=== PATIENT | male | born 1995 | race Caucasian/White ===

== ENCOUNTER 2016-07-29 14:01 | Emergency (ER) | payer OTHER ==
[2016-07-29 15:33] LABS: HEMOGLOBIN 17.6 gm/dl (14.0-17.5); RED BLOOD COUNT 6.05 M/UL (4.20-5.50); WHITE BLOOD COUNT 7.8 K/UL (4.5-11.0)
[2016-07-29 16:09] LABS: BUN/CREATININE RATIO 13 (0-10)
== END 2016-07-29 18:00 | disposition home or self-care (01) ==
LOC: ER1 14:01
PROVIDERS: Emergency Medicine
DX: G40.409 Other generalized epilepsy and epileptic syndromes, not intractable, without status epilepticus (principal)
CPT/HCPCS: 36415; 70450; 71010; 80053; 80307; 81001; 82550; 82553; 83874; 84484; 85025; 93005; 96374; 99285; J1953; J2060; J7030

== ENCOUNTER 2016-08-03 21:39 | Inpatient (IN) | payer OTHER ==
[~2016-08-03] VITALS: Ht 188 cm; Wt 83.9 kg
[2016-08-03 22:42] LABS: RED BLOOD COUNT 5.38 M/UL (4.20-5.50); WHITE BLOOD COUNT 14.7 K/UL (4.5-11.0)
[2016-08-03 22:44] LABS: HEMOGLOBIN 15.4 gm/dl (14.0-17.5)
[2016-08-03 22:58] LABS: BUN/CREATININE RATIO 11 (0-10)
[2016-08-04] MEDS ORDERED: KEPPRA500 MG PO (01:53)
[2016-08-04 06:27] LABS: RED BLOOD COUNT 4.66 M/UL (4.20-5.50); WHITE BLOOD COUNT 7.9 K/UL (4.5-11.0)
[2016-08-04 06:28] LABS: HEMOGLOBIN 13.1 gm/dl (14.0-17.5)
[2016-08-04 06:40] LABS: BUN/CREATININE RATIO 13 (0-10)
[2016-08-04] MEDS ORDERED: KEPPRA750 MG PO (10:38)
[2016-08-04] MEDS ORDERED: HABITROL 14 MG P1 EA TD (10:40)
== END 2016-08-04 10:50 | disposition home or self-care (01) | DRG 100 ==
LOC: ER1 21:39 → ZEROF 23:58 → CCU 23:58
PROVIDERS: Emergency Medicine; ADMIT Internal Medicine
PROC: 5A1935Z Respiratory Ventilation, Less than 24 Consecutive Hours (ICD-10-PCS; principal; 2016-08-03)
PROC: 0BH17EZ Insertion of Endotracheal Airway into Trachea, Via Natural or Artificial Opening (ICD-10-PCS; 2016-08-03)
DX: G40.409 Other generalized epilepsy and epileptic syndromes, not intractable, without status epilepticus (principal); G93.41 Metabolic encephalopathy; F10.10 Alcohol abuse, uncomplicated; F15.90 Other stimulant use, unspecified, uncomplicated; Y90.3 Blood alcohol level of 60-79 mg/100 ml; F13.90 Sedative, hypnotic, or anxiolytic use, unspecified, uncomplicated; E87.8 Other disorders of electrolyte and fluid balance, not elsewhere classified; D72.829 Elevated white blood cell count, unspecified; G47.00 Insomnia, unspecified; F17.210 Nicotine dependence, cigarettes, uncomplicated; Z91.14 Patient's other noncompliance with medication regimen; Z79.899 Other long term (current) drug therapy; Z82.5 Family history of asthma and other chronic lower respiratory diseases
CPT/HCPCS: 31500; 36415; 36600; 70450; 71010; 80053; 80307; 81001; 82550; 82553; 82803; 83605; 83874; 83880; 84484; 85025; 85610; 85730; 94002; 96374; 96375; 99285; G0480; J0696

== ENCOUNTER → 2020-03-05 | Outpatient (CLI) | payer BC ==
[~2020-03-05] MED LIST: HABITROL 14 MG P1 EA TD; KEPPRA500 MG PO; KEPPRA750 MG PO
[2020-03-05 11:10] LABS: BUN/CREATININE RATIO 20 (0-10)
[2020-03-06 11:14] LABS: CREATININE, URINE 146.1 mg/dL (Not Estab.); MICROALB/CREAT RATIO <2 (0-29)
== END ==
LOC: LAB 09:59
PROVIDERS: Internal Medicine Nephrology
DX: N17.9 Acute kidney failure, unspecified (principal)
CPT/HCPCS: 36415; 80053; 81001; 82043; 82570